=== PATIENT | female | born 1980 | race Hispanic/Latino ===

== ENCOUNTER → 2023-06-19 | Outpatient (CLI) | payer BC | END | disposition home or self-care (01) | LOC: RAH 11:28 | PROVIDERS: ATTEND Obstetrics & Gynecology | DX: Z12.31 Encounter for screening mammogram for malignant neoplasm of breast (principal) | CPT/HCPCS: 77067 ==

== ENCOUNTER → 2024-07-31 | Outpatient (CLI) | payer BC ==
--- NOTE | 2024-07-31 15:18 | HMCIMG ---
US PELVIC NON-OB COMP REASON: HYPERTROPHY OF UT COMPARISON: None TECHNIQUE: Routine pelvic sonogram was performed. FINDINGS: Uterus is 10.5 x 5.2 x 6.9 cm. There are multiple fibroids, including anterior fundal measuring 2.4 cm, posterior fundal at 1.6 cm and several more central fibroids. The endometrial canal, largest 3.4 cm. Both ovaries appear normal. There are no adnexal masses. There is no free fluid in the cul-de-sac. IMPRESSION: 1. Prominent uterus with multiple fibroids, largest 3.4 cm. 2. Otherwise unremarkable exam.
== END | disposition home or self-care (01) ==
LOC: RAH 14:08
PROVIDERS: ATTEND Obstetrics & Gynecology
DX: D25.9 Leiomyoma of uterus, unspecified (principal); N85.2 Hypertrophy of uterus
CPT/HCPCS: 76856

== ENCOUNTER → 2024-08-01 | Outpatient (CLI) | payer BC ==
--- NOTE | 2024-08-01 11:32 | HMCIMG ---
SCREENING MAMMOGRAM REASON: Annual Exam COMPARISON: 06/19/2023 TECHNIQUE: CC and MLO views of the bilateral breasts were performed.CAD was performed as well. FINDINGS: Parenchymal density: The breasts are heterogeneously dense, which may obscure small masses. There are no focal mass lesions. There are no pathologic appearing calcifications. There is no evidence of architectural distortion or skin thickening. IMPRESSION: Normal screening mammogram The patient was entered into a reminder system with a target due date for their next mammogram. BI-RADS CATEGORY 1: NEGATIVE Recommend monthly self breast exam as well as annual clinical examination. A negative x-ray should not delay biopsy if a dominant or clinically suspicious mass is present, since 8-10% of cancers are not identified by mammography. Dense breasts particularly, may obscure an underlying neoplasm. Some of these may be detected clinically and therefore, clinical examination is an essential part of breast evaluation.
== END | disposition home or self-care (01) ==
LOC: RAH 08:26
PROVIDERS: ATTEND Obstetrics & Gynecology
DX: Z12.31 Encounter for screening mammogram for malignant neoplasm of breast (principal); R92.333 Mammographic heterogeneous density, bilateral breasts
CPT/HCPCS: 77067